=== PATIENT | female | born 1945 | race Caucasian/White ===

== ENCOUNTER 2016-10-28 14:36 | Observation (INO) | payer MEDICARE, OTHER ==
[~2016-10-28] VITALS: Ht 180.3 cm; Wt 88.9 kg
[~2016-10-28 14:36] MED LIST: AMLO-39 PO; ATEN100T4 PO; ATRV10T PO; CARV25T PO; FURO-3 PO; GABA300C PO; HYDR1TAB PO; HYDR1TAB69 PO; METF1000 PO; METH500T7 PO; POTA20TA35 PO; PRO20 PO; ZES20T PO
[2016-10-28 16:15] VITALS: PULSE 71
[2016-10-28 16:17] VITALS: BP 165/82; PULSE 67; RESP 16; O2SAT 96
[2016-10-28] MEDS ORDERED: Ondansetron 2 mg/mL 2 mL Inj IVPUSH PRN (16:40)
[2016-10-28] MEDS ORDERED: Polyethylene Glycol (PEG) 17 Gm Powder PO PRN (16:40)
[2016-10-28] MEDS ORDERED: Alum-Mag Hydrox-Simeth 30 mL Suspension PO PRN (16:40)
[2016-10-28 17:08] LABS: APPEARANCE,URINE SLIGHTLY CLOUDY (CLEAR,HAZY); COLOR,URINE YELLOW (YELLOW); OCCULT BLOOD,URINE LARGE (NEGATIVE); UROBILINOGEN,URINE NORMAL (NORMAL)
[2016-10-28 17:11] LABS: BASOPHILS % (AUTO) 0.4 % (0-3); EOSINOPHILS % (AUTO) 0.8 % (0-5); MONOCYTES % (AUTO) 8.6 % (4-12); Mean Corpuscular Hemoglobin 29.6 pg (27.0-35.0); Mean Corpuscular Volume 92.4 fL (81-100); NEUTROPHILS % (AUTO) 67.9 % (40-74); Platelet Count 278 bil/L (150-400)
[2016-10-28 17:24] LABS: INR 3.25 ratio
[2016-10-28 17:31] LABS: TROPONIN T 0.026 ug/L (0.0-0.011)
[2016-10-28] MEDS: 0.9% Sodium Chloride 1,000 ML IV SCH (18:27)
--- NOTE | 2016-10-28 18:56 | PCM.HPMED ---
Subjective Date of Service Oct 28, 2016 Primary Provider: Admitting Physician: Jeanette Mcdonnell MD Primary Care Physician: Zheng Carranza MD Attending Physician: Jeanette Mcdonnell MD Admit Status: Direct Admit Chief Complaint: Witnessed seizure today History of Present Illness: This is a 70-year-old female who is transferred here from [facility] emergency room. She had a witnessed seizure today her . He had noticed 45 seconds of tonic-clonic seizures. She does have a seizure disorder however very rarely has a seizure. She is on Lamictal for this. Per ER [facility] note patient was being helped with transfer from wheelchair at about 7: 30 AM to get breakfast. She apparently passed out for patient and . ER M.Shirley notes that there was noted on telemetry while she was in the emergency room 9 BUN of ventricular tachycardia asymptomatic. No other runs were noted. 12-lead EKG is difficult to read given that his Xerox copy however her ER MDs note shows normal sinus rhythm at a rate of 75. PACs are noted along with right bundle branch block and left anterior fascicular walk. Possible LVH no ST or T-wave changes noted. Patient denies any chest pain. Denies any recent feelings of palpitation and slow or fast heart rate. Eyes any shortness of breath or cough. She also of note was noted to have a urinary tract infection in the emergency room by urine analysis which revealed trace protein and trace blood and positive nitrite 5-10 WBCs and many bacteria 01 RBCs. I will note auto roller here at [facility] Dr. Yeboah was notified regarding this patient by ER Lawanda at [facility]. Upon patient's arrival here I review her labs and she is found to have elevated troponin of 0.088. Her BUN is 31 creatinine is 1.2 with a calculated GFR of 47.3 Review of Systems: Other review of systems are reviewed and are negative except for as in history of present illness. In fact patient does deny any fevers or chills or urinary symptoms. She does have ongoing urinary incontinence and actually arrives to us with a Allen in place which was given to her at [facility] ER today. Allergies Coded Allergies: Levofloxacin (Verified Allergy, Severe, SEVERE ITCHING, 10/19/12) Penicillins (Verified Allergy, Severe, Anaphylaxis, 10/19/12) Demeclocycline HCl (Verified Allergy, Unknown, 10/19/12) Penicillin G Benzathine (Verified Allergy, Unknown, 10/19/12) ALL BICILLINS Penicillin G Procaine (Verified Allergy, Unknown, 10/19/12) ALL BICILLINS Home Medications Med rec is not entered at the time of this dictation H History of CVA with right sided hemiparesis Type II diabetes Atrial fibrillation on Coumadin therapy currently Seizure disorder Hypertension History of CAD with non-STEMI in November 2012 History of congestive heart failure secondary to systolic dysfunction Surgical History Status post hysterectomy History of foot surgeries History of cataract surgery History of depressed tibial plateau fracture managed nonoperatively in 2012 Family History Lives with her in [place] Social History Hx Alcohol Use: No Hx Substance Use: No Living Arrangement: with Family Exam Vital Signs Vital Sign - Last Date Time Temp Pulse Resp B/P Pulse Ox O2 Delivery O2 Flow Rate FiO2 10/28/16 16:17 37.0 67 16 165/82 96 Room Air Exam Constitutional: Elderly woman in no acute distress Head: Normocephalic atraumatic Eyes: PERRLA DC EOMI Mouth: Poor dentition Neck: Carotids 2+ over 4 without bruits bilaterally Chest: Scant expiratory wheezes noted Cor: regular rate and rhythm, S1-S2 without murmur Abdomen: Soft nontender bowel sounds present Extremities: Right-sided arm contracture after stroke no pedal edema noted Psych: Mood and affect are appropriate Skin: No rashes Neuro: Alert and oriented 3, right sided hemiparesis noted Lab and Diagnostics Labs See labs from [place] emergency room Result Diagram: 10/28/16 1700 10/28/16 1700 12-lead ECG Twelve-lead EKG is to be done here and is pending at the time of this dictation Assessment & Plan # Generalized seizure, acute, history of seizure disorder which is chronic, present on admission We will go ahead and check MRI seizure protocol Continue her current home meds once entered into medication reconciliation Question is whether ventricular arrhythmia caused her seizure and will monitor Cardiology is also to consult # Nonsustained run of V. tach, acute, present on admission Magnesium level was normal and potassium was normal Cardiology to see also Check echocardiogram Continue on telemetry # Elevated troponin level, acute, present on admission We will check serial troponins Check echocardiogram # Type II diabetes ,chroinic,poa monitor blood sugars placed on subcutaneous insulin protocol # Chronic atrial fibrillation, present on admission There is to be paroxysmal as EKG from [place] reportedly was in normal sinus She is on warfarin therapy, Will order pharmacy to manage and dose warfarin Her INR at [facility] as 3.3 # DVT prophylaxis Patient is on therapeutic Coumadin # CODE STATUS Patient is full code Time spent 60 minutes Jeanette Mcdonnell MD Oct 28, 2016 18:56
--- NOTE | 2016-10-28 19:12 | NUR ---
Admit Patient admitted from [facility], patient arrived to unit via gurney. Patient is non weightbearing r/t stroke and L knee injury. Patient A&Ox3. VSS. C/o chronic knee pain, currently at 04/27 but refused tylenol. MD aware. Patient becomes fatigued easily and had to stop admit interview to let her rest multiple times. Patient unsure of her home meds but will bring in med list tomorrow. Patient lying in bed watching TV, call light within reach.
[2016-10-28 19:47] VITALS: BP 162/87; PULSE 72; RESP 20; O2SAT 94
[2016-10-28] MEDS: cefTRIAXone Inj 2,000 MG in Dextrose 5% Minibag Plus 50 ML IV SCH (20:15)
[2016-10-28] MEDS: HYDROcodone-APAP 5-325 mg Tablet PO PRN (20:22)
--- NOTE | 2016-10-28 20:53 | NUR ---
ODALYS explained and signed, copy of ODALYS and Medicare self administered drug info provided
--- NOTE | 2016-10-28 22:22 | DRSVH ---
PROCEDURE: MRI SEIZURE BRAIN WITH AND WITHOUT CONTRAST ([id number]) INDICATIONS: seizure TECHNIQUE: Noncontrast axial T1 spin echo, axial T2 fast spin echo, sagittal and axial FLAIR, axial gradient ech o, axial diffusion and ADC, coronal thin-slice T2 FSE through the brain. Optional contrast, followed by axial and coronal 3D VIBE or T1 spin echo with fat saturation sequences through the brain. COMPARISON: [facility], MR, BRAIN WITHOUT CONTRAST, 05/16/2012, 11:39. FINDINGS: Image quality: Suboptimal due to motion artifact. CSF spaces: Ventricles are normal in size and shape. Basal cisterns are patent. No extra-axial flu id collections. Brain: No intracranial bleeds or mass effects. Chronic left parietal encephalomalacia. No abnormal intracranial enhancement. Laureano-white matter interface appears intact. Diffusion weighted images dem onstrate no acute ischemic insults. Brainstem appear normal. Normal intravascular flow voids are pr esent. The hippocampal regions appear normal and symmetric in morphology. Skull and face: Calvarial marrow signal is normal. Orbits appear normal. Sinuses: Mucous retention cyst or polyp in the left maxillary sinus. This appears unchanged since the prior study. There is mild right maxillary sinus mucosal thickening. There is right mastoid air cell fluid which is also unchanged. IMPRESSION: Chronic left parietal encephalomalacia. No abnormal enhancement. No evidence of acute ischemia. Dictated by: Andre Lee M.D. on 10/28/2016 at 22:16 Approved by: Andre Lee M.D. on 10/28/2016 at 22:20
[2016-10-28 23:34] VITALS: BP 148/88; PULSE 64; RESP 18; O2SAT 93
--- NOTE | 2016-10-28 23:38 | NUR ---
Tele/MRI electric meter technician reported pt's HR down to mid 30s and then went into junctional rhythm in 50s. EKG ordered for rhythm changes, Lai BELLE aware of tele changes. Pt asleep at the time but woken for vitals and was asymptomatic, other vitals stable, charger tester also in room to assess and review EKG. Pt's tele intermittently melisa in 40s-50s and would have junctional rhythm, but then back to SR low 60s. New T-wave inversion also noted. FYI page sent to frank BELLE about all these findings as well as it all occurred around midnight. No new orders at this time. Currently pt remaining SR high 50s- low 60s w/ IVCD, denies any symptoms, denies chest pain. Earlier pt sent to have brain MRI per orders, Lai BELLE paged when results dictated. Seizure precautions placed.
[2016-10-29] VITALS (8 sets, daily range): BP systolic 152–170; BP diastolic 70–92; PULSE 59–71; RESP 16–20; O2SAT 94–97
[2016-10-29] MEDS: 0.9% Sodium Chloride 1,000 ML IV SCH ×2 (05:28→15:24)
[2016-10-29 05:40] LABS: TROPONIN T 0.01 ug/L (0.0-0.011)
[2016-10-29] MEDS: HYDROcodone-APAP 5-325 mg Tablet PO PRN (08:40)
[2016-10-29 09:27] LABS: INR 2.79 ratio
--- NOTE | 2016-10-29 09:46 | PCM.CHPCAR ---
Consult Subjective Date of service Oct 29, 2016 Date of admit Oct 28, 2016 at 16:10 Provider Requesting Consult Primary Care Physician Primary Care Provider: Zheng Carranza MD Chief Complaint Nonsustained V. tach with elevated troponins History of Present Illness Ms. Roche is a 70 year old female with a past medical history of CHF, CAD with NSTEMI in November 2012. A-fib on Coumadin, CVA. She was transferred to [facility] from [place] where she was being treated for seizure with history of seizures. Pt was reported to have one episode of a 9 beat run of V-tach which was asymptomatic. [place] ED physician reports that ECG at the time showed normal sinus rhythm at a rate of 75. PACs were noted along with a RBBB and left anterior fascicular walk and possible LVH. No ST or T-wave changes were noted. At arrival to [facility] troponin was elevated of 0.088. Overall patient feels very well, initially seen for seizure-like activity as confirmed by her today. She was post-ictal for few hours yesterday. She has denied any other symptoms including chest pain, heart racing sensations , palpitations, shortness of breath, headache or visual changes, numbness and tingling or and extremities or diaphoresis. She feels good today and back to her baseline and wants to go home. Review of Systems Review of Systems REVIEW OF SYSTEMS Constitutional: Denies Chills, Fever, Sweats, Weakness Eyes: Denies Blurred Vision, Pain, Vision Changes ENT: Endorses right-sided facial droop Neck: Denies Mass, Pain, Swelling Cardiovascular: Denies Chest Pain, Edema, Irregular Heart Rate, Palpitations, Rapid Heart Rate, SOB on Exertion, SOB while laying flat Respiratory: Endorses nonproductive cough, Wheezing Gastrointestinal: Denies Abdominal Pain, Constipation, Diarrhea, Heartburn, Nausea, vomiting Musculoskeletal: Endorses right upper extremity weakness secondary to prior CVA. Skin: Reports: Denies Itching, Lesions, Rash Neurological: Denies Change in LOC, Change in Speech, endorses some confusion, droopy mouth, localized weakness right side tremors and seizures Hematologic: Denies Abnormal Bleeding, Bruising Lymphatic: Denies Adenopathy Problem List: # One episode V - Tachycardia # Paroxysmal A. fib # NSTEMI # CAD # CHF # HTN PMH Past Medical History Atrial fibrillation on Coumadin therapy currently diagnosed 10 years History of CVA with right sided hemiparesis diagnosed 5 years ago Type II diabetes Seizure disorder Hypertension History of CAD with non-STEMI in November 2012 History of congestive heart failure secondary to systolic dysfunction Past Surgical History Status post hysterectomy History of foot surgeries History of cataract surgery History of depressed tibial plateau fracture managed nonoperatively in 2013 Bedside Blood Glucose: 149 Scheduled AmLODIPine-Expunged Drug, Do Not Renew! (AmLODIPine-Expunged Drug, Do Not Renew! ) 5 Mg Tablet 10 MG PO DAILY (Reported) DO NOT CONTINUE Atenolol-Expunged Drug, Do Not Renew! (Atenolol-Expunged Drug, Do Not Renew!) 100 Mg Tablet 100 MG PO DAILY (Reported) Carvedilol-Expunged Drug, Do Not Renew! (Carvedilol-Expunged Drug, Do Not Renew! ) 25 Mg Tablet 25 MG PO BID (Reported) DO NOT CONTINUE FLUoxetine-Expunged Drug, Do Not Renew! (FLUoxetine-Expunged Drug, Do Not Renew! ) 20 Mg Capsule 20 MG PO DAILY (Reported) DO NOT CONTINUE Furosemide-Expunged Drug, Do Not Renew! (Furosemide-Expunged Drug, Do Not Renew! ) 40 Mg Tablet 40 MG PO DAILY (Reported) DO NOT CONTINUE Gabapentin-Expunged Drug, Do Not Renew! (Neurontin-Expunged Drug, Do Not Renew! ) 300 Mg Capsule 300 MG PO TID (Reported) DO NOT CONTINUE Hydrocod/APAP-Expunged, Do Not Renew! (VICODIN 5/500-Expunged Drug, Do Not Renew ) 1 Udtab Tablet 1 UDTAB PO Q6HP (Reported) Lisinopril-Expunged Drug, Do Not Renew! (Lisinopril-Expunged Drug, Do Not Renew! ) 20 Mg Tablet 40 MG PO BID (Reported) TAKE 1 TABLET EVERY 6 HOURS NEEDED FOR PAIN CONTROL Metformin-Expunged Drug, Do Not Renew! (Metformin-Expunged Drug, Do Not Renew!) 1,000 Mg Tablet 1,000 MG PO BID (Reported) Methocarbamol-Expunged Drug, Do Not Renew! (Methocarbamol-Expunged Drug, Do Not Renew!) 500 Mg Tablet 500 MG PO BID (Reported) POTASSIUM CHL-Expunged Drug, Do Not Renew! (V-ZIW-Gvjqbmut Drug, Do Not Renew!) 20 Meq Tab.er.prt 20 MEQ PO BID (Reported) Scheduled PRN Hydrocod/APAP-Expunged, Do Not Renew! (VICODIN 5/500-Expunged Drug, Do Not Renew ) 1 Each Tablet 1 EACH PO Q6 PRN PRN (Reported) Miscellaneous Medications Atorvastatin-Expunged Drug, Do Not Renew! (Atorvastatin-Expunged Drug, Do Not Renew!) 10 Mg Tablet 20 MG PO (Reported) Current Inpatient Medications Current Medications Sodium Chloride 1,000 ml @ 100 mls/hr Q10H IV Last administered on 10/29/16 05 :28; Admin Dose 100 MLS/HR; Start 10/28/16 at 16:39 Al Hydrox/Mg Hydrox/Simethicone 30 ml Q6H PRN PO; Start 10/28/16 at 16:40 Ondansetron HCl 4 to 8 mg Q4H PRN IVPUSH; Start 10/28/16 at 16:40 Senna 17.2 mg BID PRN PO; Start 10/28/16 at 16:40 Polyethylene Glycol 17 gm DAILY PRN PO; Start 10/28/16 at 16:40 Acetaminophen 650 mg Q4H PRN PO; Start 10/28/16 at 16:40 Pharmacy Consult 1 ea 1 ea DAILY@17 XX Last administered on 10/28/16 17:00; Admin Dose 1 EA; Start 10/28/16 at 17:00 Ceftriaxone Sodium/Dextrose/ Water 50 ml @ 100 mls/hr Q24H IV Last administered on 10/28/16 20:15; Admin Dose 100 MLS/HR; Start 10/28/16 at 18:00 Acetaminophen/ Hydrocodone Bitart 1-2 Tabs Q4H PRN PO Last administered on 10/28 20:22; Admin Dose 2 TABLET; Start 10/28/16 at 19:00 Allergies: Coded Allergies: Levofloxacin (Verified Allergy, Severe, SEVERE ITCHING, 10/19/12) Penicillins (Verified Allergy, Severe, Anaphylaxis, 10/19/12) Demeclocycline HCl (Verified Allergy, Unknown, 10/19/12) Penicillin G Benzathine (Verified Allergy, Unknown, 10/19/12) ALL BICILLINS Penicillin G Procaine (Verified Allergy, Unknown, 10/19/12) ALL BICILLINS Family History Family History Endorses father EtOH abuse history Great-grandfather tuberculosis Mother of natural causes Social History Occupation: retired nurseHx Alcohol Use: NoHx Substance Use: NoHx Tobacco Use : Yes (1 pack per day and does not desire to quit) Smoking Status: Current Every Day Smoker (1 pack per day no desire to quit) Living Arrangement: with Family Exam Vital Signs Vital Sign - Last Date Time Temp Pulse Resp B/P Pulse Ox O2 Delivery O2 Flow Rate FiO2 10/29/16 04:59 71 10/29/16 04:20 36.9 16 160/92 95 Room Air Intake and Output 10/28/16 10/28/16 10/29/16 Cumulative From/Thru 14:59 22:59 06:59 10/28/16 16:36 - 10/29/16 06:33 Intake Total 1318 ml 1318 ml Output Total 300 ml 900 ml 1200 ml Balance -300 ml 418 ml 118 ml Intake Oral 351 ml 351 ml IV Total 967 ml 967 ml Output Urine Total 300 ml 900 ml 1200 ml # Bowel Movements 1 1 Objective General: Sitting up in bed awake and alert in No acute distress, well-developed , well-nourished, appropriately interactive seizure precautions in place HEENT: Normocephalic, atraumatic. External ears without defect. Pupils equal, round, and reactive to light and accommodation. Anicteric sclerae, moist conjunctivae, and no lid lag. Mild right sided facial droop Neck: No jugular venous distension. No bruits. Cardiovascular: Bradycardic rate and irregular rhythm with no murmurs, rubs, or gallops appreciated Pulmonary: Bilateral inspiratory and expiratory wheezing poor air movement Abdomen: . Soft, nontender, nondistended. Extremities: No clubbing, cyanosis, edema, or lymphadenopathy appreciated. Skin: Normal temperature, turgor, and texture; no rash, ulcers, or subcutaneous nodules appreciated. Neurological: Cranial nerves grossly intact. Right-sided facial droop, right upper extremity decreased mobility Psychiatric: Normal mood and affect. Alert and oriented to person, place, and time. Lab and Diagnostics Result Diagram: 10/28/16 1700 10/28/16 1700 X-Rays, CTs and MRIs Echo 10/29/2016: 1) Mild concentric left ventricular hypertrophy with normal size and systolic function (EF 55-60%). 2) No obvious focal wall motion abnormalities noted but poor endocardial definition reduces the sensitivity for the detection of such. 4) Normal right ventricular size and function. 5) No significant valvular abnormalities. 6) Hypertension present during the study (BP 160/92). 7) Compared to the Echo done 11/23/2012, LV function has improved from 25-30% to 55-60% on the current study. MRI SEIZURE BRAIN WITH AND WITHOUT CONTRAST 10/28/2016: Chronic left parietal encephalomalacia. No abnormal enhancement. No evidence of acute ischemia. Assessment & Plan Assessment 70 year old female with a past medical history of CAD, NSTEMI, A-fib, CHF and CVA transferred from [facility] for 1 episode of asymptomatic non sustained run of ventral tachycardia. Patient's initial troponin reported to be 0.088 with trend down 0.026, 0.017 last value this morning 0.01. PT 35.6, INR 3.25. Chem panel notable for elevated BUN/creatinine and A1c otherwise unremarkable. # Elevated troponin in the setting of nonsustained ventricular tachycardia: troponin was in the equivocal range yesterday post seizure and now are normal. ECG did not show any randa ST changes though did show a RBBB. She remains asymptomatic from cardiac standpoint but is mostly bed bound at baseline. Suspect the troponin elevation was due to seizure related increase in sympathetic tone. Patient had non-sustained VT at [facility] on 10/28/2016 but none while in our hospital. Telemetry overnight showed escape beats throughout the night possibly junctional block as well as inverted T waves. Heart rate has been bradycardic throughout hospital stay, with episodes of nocturnal bradycardia into the 30's which have all been asymptomatic. Awaiting [facility] medication list. CHADS VASC score is 8 (Female, age 65-74, CHF Hx, HTN Hx, DMII, Hx of CVA, Hx of CAD) putting her in a high risk for thromboembolic event. Other risk factors include current 1 pack per day smoking history. Plan: - ECHO showed moderate LVH with normal LV function - Primary team is getting home BP medications and will adjust them to control patient's BP better - Pt anticoagulated with Coumadin, pharmacy to dose - Decrease AV vitaly and rate control agents - Start Atorvastatin 40mg daily - Recomend stress test as outpatient # Paroxysmal atrial fibrillation, Pt states that she has carried this diagnosis for over 10 years, INR is 3.25, PT is 35.6. Electrolytes unremarkable. Currently in sinus rhythm with some PACs and no evidence of recurrent atrial fibrillation. - Coumadin as above # CAD, chronic. Pt is not followed by [facility] no records available. - medical management as above # HTN with LVH: poorly controlled. Defer management to primary team. # CHF with reported systolic dysfunction. Echo today shows normal LV function. Resolved. # SZ disorder, to be managed by primary team. Seizures are rare but started after CVA about 5 years ago. Neurology consult as outpatient. # DM, Insulin dependent - Primary team to manage insulin dosing # Smoking: cessation education provided. Attending Statement I saw, examined, and evaluated this very complex patient with Dr. Jonas De Los Santos on 10/29/2016 and agree with the note as above along with my edits. JONAS DE LOS SANTOS DO Oct 29, 2016 08:38 Kiel Dudley MD Oct 29, 2016 12:25
--- NOTE | 2016-10-29 09:51 | PCM.PHAPRO ---
Progress Witnessed seizure today Date Oct 29-Oct INR 3.25 2.79 INR change -0.46 Warf Dose NONE 3 Mike Alcantar Oct 29, 2016 09:51
--- NOTE | 2016-10-29 11:11 | DRSVH ---
[facility] [address] [place] [address] Echocardiogram Report Name: ROLDAN HOLLAND Date: 10/29/2016 Height: 71 in Hospital Exam Location: [facility] Weight: 196 lb Gender: Female BSA: 2.1 m2 : 1945 Age: 70 yrs BP: 160/92 mmHg Reason For Study: Elevated Troponin Ordering Physician: [facility] Performed By: Sudarshan Haro Referring Physician: CHATA NORTH Interpretation Summary 1) Mild concentric left ventricular hypertrophy with normal size and systolic function (EF 55-60%). 2) No obvious focal wall motion abnormalities noted but poor endocardial definition reduces the sensitivity for the detection of such. 4) Normal right ventricular size and function. 5) No significant valvular abnormalities. 6) Hypertension present during the study (BP 160/92). 7) Compared to the Echo done 11/23/2012, LV function has improved from 25-30% to 55-60% on the current study. Procedure: A two-dimensional transthoracic echocardiogram with color flow and Doppler was performed. Parasternal images are difficult; apical images are good. Comparison is made with the echocardiogram of 11/23/12. The patient was in normal sinus rhythm during the exam. Left Ventricle: The left ventricle is normal in size. Proximal septal thickening is noted. There is mild concentric left ventricular hypertrophy. Trabeculae near apex are visualized. No thrombus is observed. The ejection fraction is estimated to be 55-60%. There are no obvious focal wall motion abnormalities noted but poor endocardial definition reduces the sensitivity for the detection of such. Right Ventricle: The right ventricle is normal in size and function. Atria: The left atrium is mildly dilated. Right atrium is small. The interatrial septum is intact with no evidence for an atrial septal defect. Mitral Valve: The mitral valve leaflets are slightly calcified. There is mild to moderate mitral regurgitation. Aortic Valve: The aortic valve is grossly normal. There is mild aortic valve sclerosis. There is no aortic valve stenosis. There is trace aortic regurgitation. Tricuspid Valve: The tricuspid valve is normal. There is trace tricuspid regurgitation. Pulmonary artery pressures cannot be estimated because of the lack of a measurable TR jet velocity. Pulmonic Valve: The pulmonic valve is not well visualized. Great Vessels: The aortic root is normal size. The ascending aorta could not be visualized. The pulmonary artery is not well visualized, but is probably normal size. The IVC is of normal diameter and collapses greater than 50% with a sniff. This suggests a low right atrial pressure of 3 mm Hg. Pericardium/ Pleura There is no pericardial effusion. There is no pleural effusion. MMode/2D Measurements & Calculations RA long axis: 5.3 cmLVOT diam: 2.3 cm LA A2 area: 23.3 cm Ao root diam: 3.4 cm LA A4 area: 23.8 cm RA area: 11.1 cm Ao Arch Diam (Prox Trans): 3.3 cm LA length (vol): 5.4 cm RA vol: 19.8 ml LA vol: 87.2 ml RA : 9.5 ml/m2 LA vol index: 41.7 ml/m2 Doppler Measurements & Calculations Ao V2 max MV E max bright MV E/A: 0.82 MV dec time : 121.5 cm/sec : 68.0 cm/sec Med Peak E' Bright : 0.28 sec Ao max P.9 mmHgMV A max bright Ao mean PG : 83.3 cm/sec E/E' med: 12.4 Lat Peak E' Bright LVOT Max Bright : 104.5 cm/sec E/E' lat: 6.7 E/e' average: 9.5 ELIESER(I,D): 3.3 cm sev ratio: 0.82 Ao V2 mean LV V1 max PG ELIESER indexed to BSA : 87.4 cm/sec (cm^2/m^2): 1.6 Ao V2 VTI: 29.3 cm LV V1 VTI: 23.9 cm ELIESER(V,D): 3.5 cm2 Reading Physician:11:10 AM
--- NOTE | 2016-10-29 13:48 | NUR ---
[employer]: Continued Discharge Planning: [employer] spoke with patient's spouse Jesus Roche [phone] and he requested a quote from [employer] to transport patient home when discharged tomorrow. SW spoke with Odalys at [employer] and she quoted $150 to transport patient home. SW notified patient's and he voiced understanding and was in agreement with paying the quoted guo. Patient' estimated discharge date is 10/29/16 and transportation is scheduled for 3pm. SW will continue to follow. Celena Cordon LMSW, [facility] Addendum: 10/30/16 at 1419 by CELENA WILDER Estimated DC 10/30/16 at 3pm
--- NOTE | 2016-10-29 15:54 | PCM.PNMED ---
Subjective Date of Service Oct 29, 2016 Subjective Ms. Roche is a 70-year-old female with history of seizure disorder, CVA, atrial fibrillation, and hypertension who was transferred here from [facility] emergency room for a witnessed seizure yesterday by her . There was noted on telemetry while she was in the emergency room 9 runs of ventricular tachycardia and she was asymptomatic. Today, she reports dysuria that started today. She feels well and would like to go home. She does not have fever, chills, chest pain, shortness of breath, numbness or tingling, or palpitations. She states that she has only had 6 seizures since 2007. She had a stroke in 2007 and the seizures did not start until after the stroke. Exam Vital Signs Vital Sign - Last Date Time Temp Pulse Resp B/P Pulse Ox O2 Delivery O2 Flow Rate FiO2 10/29/16 04:59 71 10/29/16 04:20 36.9 16 160/92 95 Room Air Intake and Output 10/28/16 10/28/16 10/29/16 Cumulative From/Thru 15:00 23:00 07:00 10/28/16 16:36 - 10/29/16 06:33 Intake Total 1318 ml 1318 ml Output Total 300 ml 900 ml 1200 ml Balance -300 ml 418 ml 118 ml Intake Oral 351 ml 351 ml IV Total 967 ml 967 ml Output Urine Total 300 ml 900 ml 1200 ml # Bowel Movements 1 1 Exam General: Sitting up in bed awake and alert in No acute distress, well-developed , well-nourished, appropriate seizure precautions in place HEENT: Normocephalic, atraumatic. External ears without defect. Pupils equal, round, and reactive to light and accommodation. Anicteric sclerae, moist conjunctivae, and no lid lag. Mild right sided facial droop at nasolabial fold. Neck: No jugular venous distension. No bruits. Cardiovascular: Bradycardic rate and irregular rhythm with no murmurs, rubs, or gallops appreciated Pulmonary: Bilateral diffuse inspiratory and expiratory wheezing poor air movement Abdomen: Soft, nontender, nondistended. Extremities: No clubbing, cyanosis, edema, or lymphadenopathy appreciated. Skin: Normal temperature, turgor, and texture; no rash, ulcers, or subcutaneous nodules appreciated. Neurological: Slow speech. Right-sided facial droop, right upper extremity decreased mobility. Cranial nerves grossly intact. Psychiatric: Normal mood and affect. Alert and oriented to person, place, and time. IVs and Medications Medications Reviewed: Medications were reviewed in detail Lab and Diagnostics Result Diagram: 10/28/16169910/28/161699 Cardiac Echo Impressions Echocardiogram Report Interpretation Summary 1) Mild concentric left ventricular hypertrophy with normal size and systolic function (EF 55-60%). 2) No obvious focal wall motion abnormalities noted but poor endocardial definition reduces the sensitivity for the detection of such. 4) Normal right ventricular size and function. 5) No significant valvular abnormalities. 6) Hypertension present during the study (BP 160/92). 7) Compared to the Echo done 11/23/2012, LV function has improved from 25-30% to 55-60% on the current study. Reading Physician:11 :10 AM Assessment & Plan Ms. Roche is a 70-year-old female with history of seizure disorder, CVA, atrial fibrillation, and hypertension who was transferred here from [facility] emergency room for a witnessed seizure yesterday by her . There was noted on telemetry while she was in the emergency room 9 runs of ventricular tachycardia and she was asymptomatic. 1. Generalized seizure, acute, history of seizure disorder which is chronic, present on admission. Improved -Possibly related to her current urinary tract infection or possibly due to cardiac arrhythmia -MRI seizure protocol. MRI brain with and without contrast shows chronic left parietal encephalomalacia, no abnormal enhancement, no evidence of acute ischemia. -Continue her current home medications once entered into medication reconciliation, continued home medication lamotrigine 25 mg once daily tonight -Patient should follow up with neurology as an outpatient 2. Urinary tract infection, acute, present on admission. Active. -Urinalysis showed moderate leukocyte esterase and urine mucus. -Urine culture shows no growth to date -Patient started on ceftriaxone 2 mg intravenous every 24 hours yesterday -Consider switching to cephalexin by mouth 500 mg QID for 5 days tomorrow to finish treating her UTI as an outpatient. 3. Hypertension, chronic, present on admission. Active. -Patient's blood pressure elevated today -Her home medications have not been started until tonight as we were awaiting an up-to-date home medication list from her -I resumed lisinopril 20 mg once daily and spironolactone 100 mg once daily tonight -Monitor her blood pressure and if it continues to be elevated in the morning, consider resuming her home hydralazine 50 mg twice per day 4. Non-sustained run of ventricular tachycardia, acute, present on admission. Resolved -Magnesium level was normal -Echocardiogram showed normal ejection fraction of 60-65%. No obvious focal wall motion abnormalities or valvular abnormalities. It showed moderate left ventricular hypertrophy with normal left ventricular function -Cardiology consulted and following. There are time and recommendations are appreciated. - Pt anticoagulated with warfarin, pharmacy to dose - Started atorvastatin 40 mg daily - Cardiology recommended decreased atrioventricular vitaly and rate control agents and a stress test as outpatient -Continue telemetry to monitor 5. Chronic atrial fibrillation, present on admission -There is to be paroxysmal as EKG from [facility] was in normal sinus -Her INR at [facility] was 3.3, today it was 2.79 -She is on warfarin therapy -Pharmacy to manage and dose warfarin 6. Elevated troponin level, acute, present on admission -Likely related to her seizure. -Troponin has trended downwards. Initial troponin here was 0.026 and third troponin 0.010. -No concerning EKG changes for ischemia -Echocardiogram as above. -Cardiology following as above. 7. Type II diabetes ,chronic, present on admission -Monitor blood sugars -Placed on subcutaneous insulin protocol 8. Low thyroid stimulating hormone -TSH 0.417 mildly low, patient is not on any thyroid medication. -Patient should follow-up as an outpatient # DVT prophylaxis Patient is on therapeutic Coumadin # CODE STATUS Patient is full code Disposition: Patient will likely be discharged home tomorrow pending transportation home and continued improvement of potassium and improved blood pressure control. She is to follow up with her primary care provider about her thyroid function test, cardiology for a stress test, and neurology for her seizure. She should continue antibiotic therapy for her UTI. Attending Statement The patient was seen and examined together with Dr. Holt on 10/29/2016 and I agree with the history, exam and plan as outlined in the note above. . Izabel Holt DO Oct 29, 2016 08:15 German Penn MD Oct 30, 2016 07:55
[2016-10-29 17:05] LABS: BASOPHILS % (AUTO) 0.5 % (0-3); EOSINOPHILS % (AUTO) 2.4 % (0-5); MONOCYTES % (AUTO) 10.5 % (4-12); Mean Corpuscular Hemoglobin 29.6 pg (27.0-35.0); Mean Corpuscular Volume 91.4 fL (81-100); NEUTROPHILS % (AUTO) 59.3 % (40-74); Platelet Count 266 bil/L (150-400)
[2016-10-29] MEDS ORDERED: HYDR-3940 PO (17:54)
[2016-10-29] MEDS ORDERED: WARF4TAB6 PO (17:54)
[2016-10-29] MEDS ORDERED: LISI-567 PO (17:54)
[2016-10-29] MEDS ORDERED: SPIR100T3 PO (17:54)
[2016-10-29] MEDS ORDERED: LAMO25TA PO (17:54)
[2016-10-29] MEDS ORDERED: WARF7.5T4 PO (17:54)
[2016-10-29] MEDS ORDERED: lamoTRIgine 25 mg Tablet PO SCH (18:00)
[2016-10-29] MEDS ORDERED: HYDR-4003 PO (18:04)
[2016-10-29] MEDS: cefTRIAXone Inj 2,000 MG in Dextrose 5% Minibag Plus 50 ML IV SCH (18:24)
--- NOTE | 2016-10-29 18:50 | NUR ---
Pain/Med Rec Pt complained of 8/10 in AM given 2tabs Vicodin. Pt stating salified with reassessment stating her pain is down to a 6/10. Med rec done with feedback over the phone and MD got information from pharmacist over the phone. MD order to document 's med list. asked to bring med list in AM. Report given to oncoming RN.
[2016-10-30] MEDS: HYDROcodone-APAP 5-325 mg Tablet PO PRN (03:38)
[2016-10-30] MEDS: 0.9% Sodium Chloride 1,000 ML IV SCH ×3 (03:40→14:01)
[2016-10-30 03:43] VITALS: BP 161/91; PULSE 75; RESP 20; O2SAT 95
[2016-10-30 04:21] LABS: BASOPHILS % (AUTO) 0.3 % (0-3); EOSINOPHILS % (AUTO) 2.3 % (0-5); MONOCYTES % (AUTO) 8.8 % (4-12); Mean Corpuscular Hemoglobin 29.3 pg (27.0-35.0); Mean Corpuscular Volume 90.1 fL (81-100); NEUTROPHILS % (AUTO) 64.3 % (40-74); Platelet Count 291 bil/L (150-400)
[2016-10-30 04:26] LABS: INR 2.15 ratio
[2016-10-30 06:10] VITALS: PULSE 56
--- NOTE | 2016-10-30 06:20 | NUR ---
Turns/Pain/Cough Pt had a mostly restful night and appeared to sleep comfortably between care interventions. Pt encouraged to turn side to side for skin protection but states she gets "stuck" on her left and prefers to lay on her right side, occasionally lays on back, but mostly on right side. With latest vitals and assessment pt c/o 8 right knee pain, given PRN [place] and stated this was effective. Pt now sleeping again, appears comfortable. Pt had intermittent cough, per RADIOGRAPHER TECHNOLOGIST pt coughed up thick clear sputum once, otherwise non noted by this nurse.
--- NOTE | 2016-10-30 07:12 | PCM.PHAPRO ---
Progress Nonsustained V. tach with elevated troponins Date Oct 29Oct 29-Oct INR 3.25 2.79 2.15 INR change -0.46 -0.64 Warf Dose NONE 3 4 Mike Alcantar Oct 30, 2016 07:12
[2016-10-30 09:13] VITALS: BP 164/64; PULSE 64; RESP 18; O2SAT 94
[2016-10-30 10:22] VITALS: PULSE 57
[2016-10-30] MEDS ORDERED: Albuterol 1.25 mg/3 mL Inhalation Solution NEB PRN (11:25)
[2016-10-30 11:58] VITALS: BP 173/84; PULSE 63; RESP 20; O2SAT 96
--- NOTE | 2016-10-30 13:13 | PCM.DIMED ---
Brent Ortiz 10/30/16 1313: Discharge Instructions Date of Service Oct 30, 2016 Dates of Hospitalization Oct 28, 2016 at 16:10 Discharge Diagnosis Discharge Diagnosis 1. Generalized seizure, acute, history of seizure disorder which is chronic, present on admission. Improved 2. Urinary tract infection, acute, present on admission. Active. 3. Hypertension, chronic, present on admission. Active. 4. Non-sustained run of ventricular tachycardia, acute, present on admission. Resolved 5. Chronic atrial fibrillation, present on admission 6. Elevated troponin level, acute, present on admission 7. Type II diabetes ,chronic, present on admission 8. Low thyroid stimulating hormone Diet No restrictions Activity No restrictions Call your provider Fever or Chills, Shortness of breath, Chest pain, Weakness (unilateral), Other ( Seizures) Patient Instructions - Follow up with Dr. Carranza in 1 week - Take cephalexin (Keflex) 4 times daily for 5 days - Take atorvastatin 40 mg daily Follow-up Provider: Zheng Carranza MD Follow-up with PCP in: 1 week German Penn MD 11/01/16 0739: Discharge Instructions Attending's Statement The patient was seen and examined together with Dr. Ortiz on 10/30/2016 and I agree with the history, exam and plan as outlined in the note above. . Brent Ortiz Oct 30, 2016 13:13 German Penn MD Nov 01, 2016 07:39
[2016-10-30] MEDS ORDERED: ATOR40TA69 PO (13:15)
[2016-10-30] MEDS ORDERED: CEPH-512 PO (13:33)
--- NOTE | 2016-10-30 15:23 | NUR ---
discharge of patient Reviewed discharge instructions with patient and patient's . Patient verbalized understanding. Patient discharged via wheelchair with instructions. Prescriptions sent to pharmacy per MD. IV and Telemetry previously discontinued. Pt left hospital with carryme and daughter to home self care. will follow home.
--- NOTE | 2016-10-30 15:28 | DRSVH ---
PROCEDURE: X-RAY CHEST ONE VIEW, PORTABLE ([id number]) INDICATIONS: Wheezing TECHNIQUE: One view of the chest was acquired. COMPARISON: [facility], , CHEST 1VW (PORTABLE), 10/19/2012, 4:33. FINDINGS: Surgical changes and devices: None. Lungs and pleura: No pleural effusions or pneumothorax. Lungs are clear. Diffuse mild scarring Mediastinum: Mediastinal contours appear normal. Heart size is normal. Bones and chest wall: No suspicious bony lesions. Overlying soft tissues appear unremarkable. IMPRESSION: No acute disease Dictated by: Andre Lee M.D. on 10/30/2016 at 15:26 Approved by: Andre Lee M.D. on 10/30/2016 at 15:27
[2016-10-30] MEDS ORDERED: CIPR-232 PO (15:30)
--- NOTE | 2016-10-30 19:56 | PCM.DC.MED ---
Discharge Summary Date of Service Oct 30, 2016 Dates of Hospitalization Date of Hospital Admission Oct 28, 2016 at 16:10 Date of Discharge: Oct 30, 2016 Providers: Admitting Physician: Jeanette Mcdonnell MD Primary Care Physician: Zheng Carranza MD Attending Physician: Jeanette Mcdonnell MD Diagnosis at Time of Discharge Diagnosis at Time of Discharge 1. Generalized seizure, acute, history of seizure disorder which is chronic, present on admission. Improved 2. Urinary tract infection, acute, present on admission. Active. 3. Hypertension, chronic, present on admission. Active. 4. Non-sustained run of ventricular tachycardia, acute, present on admission. Resolved 5. Chronic atrial fibrillation, present on admission 6. Elevated troponin level, acute, present on admission 7. Type II diabetes ,chronic, present on admission 8. Low thyroid stimulating hormone Procedures Cardiac Echo Impression Echocardiogram Report Interpretation Summary 1) Mild concentric left ventricular hypertrophy with normal size and systolic function (EF 55-60%). 2) No obvious focal wall motion abnormalities noted but poor endocardial definition reduces the sensitivity for the detection of such. 4) Normal right ventricular size and function. 5) No significant valvular abnormalities. 6) Hypertension present during the study (BP 160/92). 7) Compared to the Echo done 11/23/2012, LV function has improved from 25-30% to 55-60% on the current study. Reading Physician:11 :10 AM Brief History Ms. Roche is a 70 year old female with a past medical history of CHF, CAD with NSTEMI in November 2012. A-fib on Coumadin, CVA. She was transferred to [facility] from [place] where she was being treated for seizure with history of seizures. Pt was reported to have one episode of a 9 beat run of V-tach which was asymptomatic. [place] ED physician reports that ECG at the time showed normal sinus rhythm at a rate of 75. PACs were noted along with a RBBB and left anterior fascicular walk and possible LVH. No ST or T-wave changes were noted. At arrival to [facility] troponin was elevated of 0.088. Overall patient feels very well, initially seen for seizure-like activity as confirmed by her today. She was post-ictal for few hours yesterday. She has denied any other symptoms including chest pain, heart racing sensations , palpitations, shortness of breath, headache or visual changes, numbness and tingling or and extremities or diaphoresis. She feels good today and back to her baseline and wants to go home. Hospital Course Ms. Roche is a 70-year-old female with history of seizure disorder, CVA, atrial fibrillation, and hypertension who was transferred here from [facility] emergency room for a witnessed seizure yesterday by her . There was noted on telemetry while she was in the emergency room 9 runs of ventricular tachycardia and she was asymptomatic. 1. Generalized seizure, acute, history of seizure disorder which is chronic, present on admission. Improved -Possibly related to her current urinary tract infection or possibly due to cardiac arrhythmia -MRI seizure protocol. MRI brain with and without contrast shows chronic left parietal encephalomalacia, no abnormal enhancement, no evidence of acute ischemia. -Continued home medication lamotrigine 25 mg once daily tonight -Patient should follow up with neurology as an outpatient 2. Urinary tract infection, acute, present on admission. Active. -Urinalysis showed moderate leukocyte esterase and urine mucus. -Urine culture shows possible Enterococcus - requires follow up -Ciprofloxacin 250 BID for 3 days 3. Hypertension, chronic, present on admission. Active. -Patient's blood pressure elevated today 4. Non-sustained run of ventricular tachycardia, acute, present on admission. Resolved -Magnesium level was normal -Echocardiogram showed normal ejection fraction of 60-65%. No obvious focal wall motion abnormalities or valvular abnormalities. It showed moderate left ventricular hypertrophy with normal left ventricular function - Started atorvastatin 40 mg daily - Cardiology recommended decreased atrioventricular vitaly and rate control agents and a stress test as outpatient 5. Chronic atrial fibrillation, present on admission -There is to be paroxysmal as EKG from [place] reportedly was in normal sinus -Her INR at [facility] was 3.3, today it was 2.79 -She is on warfarin therapy -Pharmacy to manage and dose warfarin 6. Elevated troponin level, acute, present on admission -Likely related to her seizure. -Troponin has trended downwards. Initial troponin here was 0.026 and third troponin 0.010. -No concerning EKG changes for ischemia -Echocardiogram as above. -Cardiology following as above. 7. Type II diabetes ,chronic, present on admission 8. Low thyroid stimulating hormone -TSH 0.417 mildly low, patient is not on any thyroid medication. -Patient should follow-up as an outpatient Exam Vital Signs (Last) Date Time Temp Pulse Resp B/P Pulse Ox O2 Delivery O2 Flow Rate FiO2 10/30/16 11:58 36.9 63 20 173/84 96 Room Air Exam General: Sitting up in bed awake and alert in No acute distress, well-developed , well-nourished HEENT: Normocephalic, atraumatic. External ears without defect. Pupils equal, round, and reactive to light and accommodation. Anicteric sclerae, moist conjunctivae, and no lid lag. Mild right sided facial droop at nasolabial fold. Neck: No jugular venous distension. No bruits. Cardiovascular: Bradycardic rate and irregular rhythm with no murmurs, rubs, or gallops appreciated Pulmonary: Bilateral diffuse inspiratory and expiratory wheezing poor air movement Abdomen: Soft, nontender, nondistended. Extremities: No clubbing, cyanosis, edema, or lymphadenopathy appreciated. Skin: Normal temperature, turgor, and texture; no rash, ulcers, or subcutaneous nodules appreciated. Neurological: Slow speech. Right-sided facial droop, right upper extremity decreased mobility. Cranial nerves grossly intact. Psychiatric: Normal mood and affect. Alert and oriented to person, place, and time. Test 10/28/16 16:45 10/28/16 17:00 10/29/16 04:51 10/30/16 03:59 Urine Color Yellow (YELLOW) Urine Appearance Slightly cloudy Urine pH 6.0 (5.0-8.0) Urine Specific [place] 1.025 (1.003-1.035) Urine Protein Tracemg/dL (NEG,TRACE) Urine Glucose (UA) Negativemg/dL (NEGATIVE) Urine Ketones Negativemg/dL (NEGATIVE) Urine Occult Blood Large (NEGATIVE) Urine Nitrite Negative (NEGATIVE) Urine Bilirubin Negative (NEGATIVE) Urine Urobilinogen Normalmg/dL (NORMAL) Urine Leukocyte Esterase Moderate (NEGATIVE) Urine RBC 3-10/hpf (0-2) Urine WBC 0-5/hpf (0-5) Urine Epithelial Cells None/hpf (NONE-MOD) Urine Crystals None seen (NONE SEEN) Urine Bacteria Few/hpf (NONE-FEW) Urine Hyaline Casts None/lpf (NONE) Urine Granular Casts None seen (NONE SEEN) Urine Waxy Casts None seen (NONE SEEN) Urine Red Blood Cell Casts None seen (NONE SEEN) Urine White Blood Cell Casts None seen (NONE SEEN) Urine Mucus Present (None Seen) Urine Trichomonas None seen (NONE SEEN) Urine Yeast None (NONE SEEN) Urinalysis Comment None Urine Culture Reflexed Indicated Hold Urine Received (Received) Hemoglobin A1c 6.6% (4.8-5.6) Troponin T 0.010ug/L (0.0-0.011) Triglycerides Level 126mg/dL (0-149) Cholesterol Level 134mg/dL (100-199) LDL Cholesterol, Calculated 56.800mg/dL (0-99) VLDL Cholesterol 25.200mg/dL HDL Cholesterol 52mg/dL (>39) Cholesterol/HDL Ratio 2.58 (0.0-4.4) Thyroid Stimulating Hormone (TSH) 0.417uIU/mL (0.450-4.500) White Blood Count 6.4th/mm3 (3.8-10.1) Red Blood Count 4.33mil/mm3 (3.90-5.20) Hemoglobin 12.7g/dL (12.0-15.6) Hematocrit 39.0% (35.0-46.0) Mean Corpuscular Volume 90.1fL (81-100) Mean Corpuscular Hemoglobin 29.3pg (27.0-35.0) Mean Corpuscular Hemoglobin Concent 32.6% (32.0-37.0) Red Cell Distribution Width 12.8% (12.3-15.4) Platelet Count 291bil/L (150-400) Neutrophils (%) (Auto) 64.3% (40-74) Lymphocytes (%) (Auto) 23.5% (14-46) Monocytes (%) (Auto) 8.8% (4-12) Eosinophils (%) (Auto) 2.3% (0-5) Basophils (%) (Auto) 0.3% (0-3) Prothrombin Time 23.4sec (8.1-12.5) Prothromb Time International Ratio 2.15ratio Sodium Level 138mEq/L (134-144) Potassium Level 5.1mEq/L (3.5-5.2) Chloride Level 103mEq/L (97-108) Carbon Dioxide Level 22mmol/L (18-29) Blood Urea Nitrogen 23mg/dL (8-27) Creatinine 1.19mg/dL (0.57-1.00) Estimat Glomerular Filtration Rate 64mL/min (>59) Glucose Level 138mg/dL (60-99) Calcium Level 8.3mg/dL (8.5-10.1) Total Bilirubin 0.6mg/dL (0.0-1.2) Aspartate Amino Transf (AST/SGOT) 24U/L (0-50) Alanine Aminotransferase (ALT/SGPT) 26U/L (0-32) Alkaline Phosphatase 71U/L (25-165) Total Protein 6.5g/dL (6.4-8.4) Albumin 4.1g/dL (3.4-5.0) Discharge Medications Discharge Medications AmLODIPine-Expunged Drug, Do Not Renew! (AmLODIPine-Expunged Drug, Do Not Renew! ) 5 Mg Tablet 10 MG PO DAILY (Reported) DO NOT CONTINUE Atorvastatin Calcium (Atorvastatin Calcium) 40 Mg Tablet 40 MG PO HS Prescribed by: MARK ORTIZ DO Cephalexin (Keflex) 500 Mg Capsule 500 MG PO QID Prescribed by: MARK ORTIZ DO Ciprofloxacin (Cipro) 250 Mg Tablet 250 MG PO BID Prescribed by: MARK ORTIZ DO FLUoxetine-Expunged Drug, Do Not Renew! (FLUoxetine-Expunged Drug, Do Not Renew! ) 20 Mg Capsule 40 MG PO DAILY (Reported) DO NOT CONTINUE Hydralazine (Hydralazine) 50 Mg Tablet 50 MG PO BID (Reported) Lamotrigine (Lamotrigine) 25 Mg Tablet 25 MG PO DAILY (Reported) Lisinopril (Lisinopril) 20 Mg Tablet 20 MG PO DAILY (Reported) Spironolactone (Spironolactone) 100 Mg Tablet 100 MG PO DAILY (Reported) Warfarin Sodium (Warfarin Sodium) 4 Mg Tablet 4 MG PO Mon/Wed/Fri (Reported) Warfarin Sodium (Warfarin Sodium) 7.5 Mg Tablet 8 MG PO Mon//Mon/Mon ( Reported) As needed Hydrocodone-Acetaminophen 5-325 mg (Hydrocodone-Acetaminophen 5-325 mg) 1 Each Tablet 1 TABLET PO Q4H PRN PRN For Pain (Reported) Followup Plan Discharge Diet: No restrictions Discharge Activity: No restrictions Patient Instructions - Follow up with Dr. Carranza in 1 week - Take cephalexin (Keflex) 4 times daily for 5 days - Take atorvastatin 40 mg daily Follow-up Provider: Zheng Carranza MD Follow-up with PCP in: 1 week Attending Statement The patient was seen and examined together with Dr. Ortiz on 10/30/2015 and I agree with the history, exam and plan as outlined in the note above. . copies to: Zheng Carranza MD, Andrew R Oct 30, 2016 19:56 German Penn MD Nov 01, 2016 07:40
== END 2016-10-30 15:15 | disposition home or self-care (01) ==
LOC: PCC 16:10
PROVIDERS: ADMIT Specialist; ATTEND Specialist
DX: G40.909 Epilepsy, unspecified, not intractable, without status epilepticus (principal); N39.0 Urinary tract infection, site not specified; I10 Essential (primary) hypertension; I47.2 Ventricular tachycardia; I48.2 Chronic atrial fibrillation; Z79.01 Long term (current) use of anticoagulants; R79.89 Other specified abnormal findings of blood chemistry; E11.9 Type 2 diabetes mellitus without complications; R94.6 Abnormal results of thyroid function studies; I25.10 Atherosclerotic heart disease of native coronary artery without angina pectoris; F17.210 Nicotine dependence, cigarettes, uncomplicated; I25.2 Old myocardial infarction; I63.8 Other cerebral infarction; G81.91 Hemiplegia, unspecified affecting right dominant side
CPT/HCPCS: 36415; 70553; 71010; 80053; 80061; 81000; 83036; 84132; 84443; 84484; 85025; 85610; 87077; 87086; 87088; 87186; 92610; 93005; 96365; 96366; A9585; C8929; G0378; G0379; G8996; G8997; J0696; J7030